=== PATIENT | male | born 1985 | race Caucasian/White ===

== ENCOUNTER 2021-01-03 10:54 | Emergency (ER) | payer SELFPAY ==
[~2021-01-03] VITALS: Ht 185.4 cm; Wt 79.5 kg
[~2021-01-03 10:54] MED LIST: ALEVE 220MG220 MG; NEURONTIN300 MG/CAP; NORCO 325 MG-51 TAB PO; ZITHROMAX Z PA250 MG PO
[2021-01-03 11:35] VITALS: TEMP 97.9
[2021-01-03] MEDS ORDERED: NORCO 325 MG-51 TAB PO (12:05)
[2021-01-03] MEDS ORDERED: DOXYCYCLINE 10100 MG PO (12:05)
[2021-01-03 12:46] VITALS: BP 129/99; PULSE 72
[2021-01-17] MEDS ORDERED: DOXYCYCLINE 10100 MG PO (13:42)
== END 2021-01-03 12:57 | disposition home or self-care (01) ==
LOC: COL.ER 10:54
DX: N45.1 Epididymitis (principal); F17.210 Nicotine dependence, cigarettes, uncomplicated; Z88.6 Allergy status to analgesic agent
CPT/HCPCS: J0696

== ENCOUNTER 2021-03-02 14:00 | Emergency (ER) | payer SELFPAY ==
[~2021-03-02] VITALS: Ht 185.4 cm; Wt 77.3 kg
[~2021-03-02 14:00] MED LIST changes: +DOXYCYCLINE 10100 MG PO
[2021-03-02] MEDS ORDERED: NORCO 325 MG-51 TAB PO (14:47)
[2021-03-02] MEDS ORDERED: MOBIC15 MG PO (14:50)
[2021-03-02 15:15] VITALS: BP 116/62; PULSE 80; TEMP 97.8
== END 2021-03-02 15:15 | disposition home or self-care (01) ==
LOC: COL.ER 14:00
DX: S40.012A Contusion of left shoulder, initial encounter (principal); V18.4XXA Pedal cycle driver injured in noncollision transport accident in traffic accident, initial encounter